=== PATIENT | female | born 1935 | race African-American/Black ===

== ENCOUNTER 2016-12-02 07:51 | Inpatient (IN) | payer MEDICARE ==
[~2016-12-02] VITALS: Ht 170.2 cm; Wt 86.7 kg
[2016-12-02] VITALS (15 sets, daily range): BP systolic 98–184; BP diastolic 34–87
[~2016-12-02 07:51] MED LIST: ALPR0.254 PO; AMLO10TA2 PO; ASPI81TA2 PO; CLOP75TA27 PO; CRESTOR20 MG PO; Clindamycin Hcl PO; Enoxaparin Sodium SQ; FURO-68 PO; Hydralazine Hcl PO; Hydrocodone/Acetaminophen PO; LABE300T PO; LACT1CAP PO; LOSA100T6 PO; LOSA50TA6 PO; METO25TA4 PO; Metoprolol Tartrate PO; OMEP20CA9 PO; TIZA4TAB PO; TRIA1CAP3 PO; WARF2TAB7 PO
[2016-12-02] MEDS: IV NORMAL SALINE 1000ML BAG 1,000 ML IV SCH ×2 (08:06→18:42)
[2016-12-02] MEDS ORDERED: DIPHENHYDRAMINE 50 MG/ML VIAL IVP ONE (08:15)
[2016-12-02] MEDS ORDERED: methylPREDNISolone SOD SUCC PF 125 MG/2 ML VIAL. IV ONE (08:15)
[2016-12-02] MEDS ORDERED: FAMOTIDINE 20 MG/2 ML VIAL IVP ONE (08:15)
[2016-12-02] MEDS ORDERED: DOCU-27 PO (08:18)
[2016-12-02] MEDS ORDERED: ASPI81TA2 PO (08:18)
[2016-12-02] MEDS ORDERED: CLON0.1T PO (08:18)
[2016-12-02 08:27] LABS: HEMATOCRIT 31.9 % (36.0-47.0); HEMOGLOBIN 10.7 g/dL (12.0-15.5); RED BLOOD COUNT 3.53 x10^6/uL (3.50-5.40); RED CELL DISTRIBUTION WIDTH 13.9 % (11.5-14.5); WHITE BLOOD COUNT 6.3 x10^3/uL (4.0-11.0)
[2016-12-02 08:41] LABS: INR 1.3 (0.8-1.1); PROTHROMBIN TIME PATIENT 15.2 SEC (11.7-14.0)
[2016-12-02 08:58] LABS: CALCIUM 9.4 mg/dL (8.5-10.1); CREATININE 1.7 mg/dL (0.6-1.0); POTASSIUM 3.9 mmol/L (3.5-5.1)
--- NOTE | 2016-12-02 08:58 | PDOC ---
MODERATE SEDATION ASSESSMENT RISKS/ALTERNATIVES Risks/Alternatives Risks and alternatives of this type of sedation and procedure discussed with: RISK/ALTERNATIVES: Patient H & P ON CHART H & P H & P on chart and reviewed for co-morbid conditions and appropriate labs. H&P ON CHART: Yes STATUS PREG STATUS ASSESSED: N/A MEDS/ALLERGIES REVIEWED Meds/Allergies Reviewed Medications and Allergies including time and route of recently administered narcotics and sedatives. MEDS/ALLERGIES REVIEWED: Yes ASA RATING ASA RATING: III AIRWAY ASSESSMENT Airway Assessment Airway patency, oral function limitations, presence of caps, crowns, dentures, partials, and ability to extend neck assessed. AIRWAY ASSESSMENT: Yes MALLAMPATI SCORE MALLAMPATI SCORE: II PRE-SEDATION ASSESSMENT PRE-SEDATION ASSESSMENT: Yes DANNA BAUTISTA MD Dec 02, 2016 08:58
[2016-12-02] MEDS ORDERED: LIDOCAINE 2% 20 ML VIAL. ONE (09:01)
[2016-12-02] MEDS ORDERED: IODIXANOL 320 MG/ML 100 ML VIAL. ONE ×2 (09:02→09:39)
[2016-12-02] MEDS ORDERED: methylPREDNISolone SOD SUCC PF 125 MG/2 ML VIAL. ONE (09:18)
[2016-12-02] MEDS ORDERED: FAMOTIDINE 20 MG/2 ML VIAL ONE (09:18)
[2016-12-02] MEDS ORDERED: DIPHENHYDRAMINE 50 MG/ML VIAL ONE (09:18)
[2016-12-02] MEDS ORDERED: MIDAZOLAM HCL 2 MG/2 ML VIAL. ONE ×2 (09:29→10:53)
[2016-12-02] MEDS ORDERED: FENTANYL PF 100 MCG/2 ML VIAL. ONE ×2 (09:29→10:54)
[2016-12-02] MEDS ORDERED: IODIXANOL 320 MG/ML 100 ML VIAL. IART ONE (09:45)
[2016-12-02] MEDS ORDERED: MIDAZOLAM HCL 2 MG/2 ML VIAL. IV ONE ×2 (09:45→11:30)
[2016-12-02] MEDS ORDERED: FENTANYL PF 100 MCG/2 ML VIAL. IV ONE ×2 (09:45→12:00)
[2016-12-02] MEDS ORDERED: LIDOCAINE 2% 20 ML VIAL. IJ ONE (09:45)
[2016-12-02] MEDS ORDERED: HEPARIN for IV BOLUS 10,000 UNIT/10 ML VIAL. ONE (09:52)
[2016-12-02] MEDS ORDERED: CLOPIDOGREL BISULFATE 75 MG TABLET ONE (11:14)
[2016-12-02] MEDS ORDERED: CLOPIDOGREL BISULFATE 75 MG TABLET PO ONE (11:15)
[2016-12-02] MEDS ORDERED: HEPARIN for IV BOLUS 10,000 UNIT/10 ML VIAL. IV ONE (11:15)
[2016-12-02] MEDS: IV 1/2 NORMAL SALINE 1,000 ML IV SCH ×2 (11:20→21:20)
[2016-12-02] MEDS ORDERED: NITROGLYCERIN SUBLINGUAL 0.4 MG BOTTLE OF 25. SL PRN (11:30)
[2016-12-02] MEDS ORDERED: ACETAMINOPHEN 325 MG TABLET. PO PRN ×2 (11:30→23:15)
--- NOTE | 2016-12-02 11:51 | CARD ---
APPROVED REPORT Patient StatusOUT-PATIENT Depilatory Painter: RT Tiburcio (R) Procedure(s) performed: 1. Bilateral selective renal angiography 2. Successful TREE FRUIT AND NUT CROPS FARMER/stent placement to bilateral renal arteries INDICATION FOR PROCEDURE The indication(s) include : Resistant hypertension, renal insufficiency and renal artery stenosis. PROCEDURE NARRATIVE After explaining the risks, benefits and alternative options, informed consent the information. Kirit vallejo was brought to the cardiac Xerox Machine Assembler and the right groin was prepped and draped the usual fashion. 20 mL of 2% lidocaine was infiltrated into the skin and subcutaneous tissues for local anesthesia. Ar terial access was obtained in the right common femoral artery and a 6 German sheath was inserted. A 6 German JR4 catheter was used to perform selective angiography of the left and right renal arteries. The following findings were noted. FINDINGS 1. The right renal artery showed 60% stenosis involving the ostium. There was a pullback gradient of approximately 70 mmHg across this lesion. 2. The left renal artery showed a patent stent in the proximal segment. Just distal to the stent, 60 % stenosis with haziness was noted. INTERVENTION The left renal artery was engaged with a 6 German JR4 guide catheter and the stenosis at the distal e dge of the stent was crossed with a 0.014 inch MBW Enterprise Pro water guidewire. This was successfully treat ed with a 5 x 15 mm Herculink Elite stent. Follow-up angiography showed resolution of the stenosis to 0%. Following this, the right renal artery was engaged with a 6 German RCD guide catheter after init ial attempts to obtain good guide support with JR4 and IM guides were unsuccessful. Due to the acute angulated takeoff of the vessel and calcification at the ostium, it was difficult to deliver any sten ts across this lesion. Hence a 6 German guide liner was advanced across the lesion after this was escrow clerk ssed with the Pro water guidewire. A 5 x 18 mm Herculink Elite stent was successfully deployed across this lesion. Follow-up angiography showed resolution of the stenosis to 0%. Patient tolerated the pr ocedure well. Hemostasis in the right groin was achieved using Angio-Seal. There were no immediate co mplications. Conclusion Successful TREE FRUIT AND NUT CROPS FARMER/stent placement of bilateral renal arteries.
[2016-12-02] MEDS ORDERED: OXYCODONE/APAP 5/325 TABLET. PO PRN (18:00)
[2016-12-02] MEDS ORDERED: ONDANSETRON PF 4 MG/2 ML VIAL. ONE (20:28)
[2016-12-02 21:38] LABS: BASO % 0 % (0-3); EOS % 0 % (0-3); HEMATOCRIT 26.3 % (36.0-47.0); HEMOGLOBIN 8.7 g/dL (12.0-15.5); LYMPH # 0.6 x10^3/uL (1.0-4.8); LYMPH % 7 % (24-48); MEAN CORPUSCULAR HEMOGLOBIN 30 pg (25-35); MEAN CORPUSCULAR HGB CONC 33 g/dL (31-37); MEAN CORPUSCULAR VOLUME 91 fL (79-100); MONO % 1 % (0-9); NEUT % 92 % (31-73); PLATELET COUNT 208 x10^3/uL (140-400); RED BLOOD COUNT 2.89 x10^6/uL (3.50-5.40); RED CELL DISTRIBUTION WIDTH 14.2 % (11.5-14.5); WHITE BLOOD COUNT 7.9 x10^3/uL (4.0-11.0)
[2016-12-02 22:44] LABS: PLT ESTIMATE ADEQUATE (ADEQUATE)
--- NOTE | 2016-12-02 23:03 | RAD ---
PQRS STATEMENT One or more of the following individualized dose reduction techniques were utilized for this study: 1.Automated exposure control. 2.Adjustment of the mA and/orkVaccording to patient size. 3.Use of iterative reconstruction technique. Indication:LOWER ABD PAIN
NO CONTRAST PER ORDER Reason: non contrast CT abd/pelvis r/o retroperitoneal hematoma / Spl. Instructions: / History: Technique: multiple contiguous axial images were obtained through the abdomen and pelvis. Coronal and sagittal reformations were created. Findings: There is a retroperitoneal hematoma in the right lower quadrant and right hemipelvis. This measures approximately 9 x 6 x 8 centimeters in size. This displaces the urinary bladder toward the left but does not cause ureteral obstruction or hydronephrosis. The heart is upper limits of normal size. There is mild atelectasis in the bilateral lung bases. Evaluation of the abdominal viscera is limited in the absence of portal venous phase contrast. The liver and spleen are normal in size. There is residual contrast in the gallbladder from the previous contrast enhanced procedure. The unopacified pancreas and adrenal glands are unremarkable. The abdominal aorta is normal in caliber and demonstrates an aorto bi-iliac stent. Renal artery stents are also in place. The renal arteries demonstrate residual contrast within the cortex and renal collecting system. Bilateral renal cysts are noted. The bowel loops are normal in caliber. The appendix is not identified. Degenerative changes are noted in the lumbar spine. Impression: - Moderate sized right retroperitoneal hematoma measuring 9 x 6 x 8 centimeters in size. - There is residual contrast within the renal parenchyma and renal collecting system. Recommend clinical vigilance for contrast induced nephropathy unless the previous contrast enhanced examination was performed shortly prior to imaging in which case this would be an expected finding. Critical findings were discussed with Zuhair, the patient's nurse at 10:57 p.m. on 12/02/2016. Electronically signed by: Kvng Hampton (Dec 02, 2016 23:02:30)
[2016-12-02] MEDS ORDERED: DIPHENHYDRAMINE HCL 25 MG CAPSULE PO PRN (23:15)
[2016-12-03] VITALS (16 sets, daily range): BP systolic 127–188; BP diastolic 54–95
[2016-12-03] MEDS: IV 1/2 NORMAL SALINE 1,000 ML IV SCH ×2 (07:20→17:20)
[2016-12-03] MEDS: CLOPIDOGREL BISULFATE 75 MG TABLET PO SCH (08:45)
[2016-12-03] MEDS: AMLODIPINE BESYLATE 10 MG TABLET PO SCH (08:45)
[2016-12-03] MEDS: LOSARTAN POTASSIUM 50 MG TABLET. PO SCH (08:45)
[2016-12-03 09:32] LABS: HEMATOCRIT 34.3 % (36.0-47.0); HEMOGLOBIN 11.5 g/dL (12.0-15.5); RED BLOOD COUNT 3.85 x10^6/uL (3.50-5.40); RED CELL DISTRIBUTION WIDTH 14.3 % (11.5-14.5); WHITE BLOOD COUNT 14.3 x10^3/uL (4.0-11.0)
[2016-12-03 09:41] LABS: CALCIUM 9.1 mg/dL (8.5-10.1); POTASSIUM 4.5 mmol/L (3.5-5.1)
--- NOTE | 2016-12-03 11:36 | PDOC ---
CARDIO Progress Notes Date and Time Date of Service 12/03/2016 Time of Evaluation 1110 Subjective Subjective: No Chest Pain, No shortness of breath, No Palpitations, No Dizziness, Other (no abdominal/groin or leg pain ) Vitals Vitals Vital Signs Date Time Temp Pulse Resp B/P Pulse Ox O2 Delivery O2 Flow Rate FiO2 12/03/16 08:45 51 188/95 12/03/16 08:07 98.2 22 98.2 12/03/16 03:00 99 Room Air Weight Weight [ ] Input and Output Intake and Output Intake and Output 12/03/16 07:00 Intake Total 1944 ml Output Total 601 ml Balance 1343 ml Intake Oral 900 ml Blood Product IV Normal Saline Flush 1044 ml Output Urine Total 400 ml Stool Total 1 ml Emesis 200 ml # Voids 2 Laboratory Labs Laboratory Tests Test 12/02/16 19:50 12/02/16 21:26 12/03/16 09:05 Glucose (Fingerstick) 176mg/dL (70-99) White Blood Count 7.9x10^3/uL (4.0-11.0) 14.3x10^3/uL (4.0-11.0) Red Blood Count 2.89x10^6/uL (3.50-5.40) 3.85x10^6/uL (3.50-5.40) Hemoglobin 8.7g/dL (12.0-15.5) 11.5g/dL (12.0-15.5) Hematocrit 26.3% (36.0-47.0) 34.3% (36.0-47.0) Mean Corpuscular Volume 91fL (79-100) 89fL (79-100) Mean Corpuscular Hemoglobin 30pg (25-35) 30pg (25-35) Mean Corpuscular Hemoglobin Concent 33g/dL (31-37) 34g/dL (31-37) Red Cell Distribution Width 14.2% (11.5-14.5) 14.3% (11.5-14.5) Platelet Count 208x10^3/uL (140-400) 178x10^3/uL (140-400) Neutrophils (%) (Auto) 92% (31-73) Lymphocytes (%) (Auto) 7% (24-48) Monocytes (%) (Auto) 1% (0-9) Eosinophils (%) (Auto) 0% (0-3) Basophils (%) (Auto) 0% (0-3) Neutrophils # (Auto) 7.2x10^3uL (1.8-7.7) Lymphocytes # (Auto) 0.6x10^3/uL (1.0-4.8) Monocytes # (Auto) 0.1x10^3/uL (0.0-1.1) Eosinophils # (Auto) 0.0x10^3/uL (0.0-0.7) Basophils # (Auto) 0.0x10^3/uL (0.0-0.2) Segmented Neutrophils % 95% (35-66) Band Neutrophils % 1% (0-9) Lymphocytes % 4% (24-48) Platelet Estimate Adequate (ADEQUATE) Sodium Level 139mmol/L (136-145) Potassium Level 4.5mmol/L (3.5-5.1) Chloride Level 107mmol/L (98-107) Carbon Dioxide Level 21mmol/L (21-32) Anion Gap 11 (6-14) Blood Urea Nitrogen 24mg/dL (7-20) Creatinine 2.0mg/dL (0.6-1.0) Estimated GFR (Cockcroft-Gault) 29.0 Glucose Level 117mg/dL (70-99) Calcium Level 9.1mg/dL (8.5-10.1) Radiology Rad Impression CT scan abdomen/pelvis: Impression: - Moderate sized right retroperitoneal hematoma measuring 9 x 6 x 8 centimeters in size. - There is residual contrast within the renal parenchyma and renal collecting system. Recommend clinical vigilance for contrast induced nephropathy unless the previous contrast enhanced examination was performed shortly prior to imaging in which case this would be an expected finding. Physical Exam HEENT: Neck Supple W Full Motion Chest: Symmetric LUNGS: Clear to Auscultation Heart: S1S2, RRR, no murmurs, other (tele: SR/SB) Extremities: 2+ Dorsalis Pedis, 2+ Posterior Tibial, No Edema, Other (right rug dry room attendant site c/d/i; soft; no ecchymosis, erythema or edema; ) Neurology: alert, oriented, follow commands Assessment Assessment 1. renal artery stenosis s/p bilateral RA stents; 12/02/2016 bradycardia (history of SSS - asymptomatic), syncope ; reported VT but no evidence on tele Hgb dropped to 8.7 from 10.7; was transfused 2 u PRBC and Hgb back up to 11.[address] scan of abdomen/pelvis done yesterday evening and demonstrates retroperitoneal bleed 9 X 6 X 8 in size denies abdominal/groin/leg pain today increase activity today; recheck H and H tomorrow - ? home tomorrow 2. ROEL post cath and retroperitoneal bleed increase p.o. intake 3. accelerated HTN SBP about 168 after losartan and amlodipine holding clonidine and labetalol due to bradycardia with rates in the 50s prn hydralazine; but accept SBP in the 150s to 160s TYRELL ZAMUDIO APRN Dec 03, 2016 11:35
[2016-12-03] MEDS ORDERED: hydrALAZINE 20 MG/ML VIAL. IVP PRN (16:30)
[2016-12-03] MEDS: LABETALOL HCL 200 MG TABLET PO SCH ×2 (16:52→21:39)
[2016-12-03] MEDS: IV NORMAL SALINE 1000ML BAG 1,000 ML IV SCH (17:26)
[2016-12-04 03:36] VITALS: BP 156/59
[2016-12-04 04:12] LABS: HEMATOCRIT 29.5 % (36.0-47.0); HEMOGLOBIN 9.8 g/dL (12.0-15.5)
[2016-12-04 04:18] LABS: CALCIUM 8.7 mg/dL (8.5-10.1); CREATININE 2.3 mg/dL (0.6-1.0); GFR 24.7; POTASSIUM 4.1 mmol/L (3.5-5.1)
[2016-12-04 07:58] VITALS: BP 173/87
[2016-12-04] MEDS: AMLODIPINE BESYLATE 10 MG TABLET PO SCH (09:25)
[2016-12-04] MEDS: LABETALOL HCL 200 MG TABLET PO SCH ×2 (09:26→21:51)
[2016-12-04] MEDS: LOSARTAN POTASSIUM 50 MG TABLET. PO SCH (09:27)
[2016-12-04] MEDS: CLOPIDOGREL BISULFATE 75 MG TABLET PO SCH (09:27)
[2016-12-04 11:00] VITALS: BP 117/51
[2016-12-04] MEDS ORDERED: IV NORMAL SALINE 1000ML BAG 1,000 ML IV ONE (11:15)
[2016-12-04] MEDS: IV NORMAL SALINE 1000ML BAG 1,000 ML IV SCH ×2 (11:15→21:52)
--- NOTE | 2016-12-04 11:18 | PDOC ---
EMILI PAYNE JOB COUNSELOR 12/04/16 1118: CARDIO Progress Notes Date and Time Date of Service 12/04/2016 Time of Evaluation 1100 Subjective Subjective: No Chest Pain, No shortness of breath, No Palpitations, No Dizziness Vitals Vitals Vital Signs Date Time Temp Pulse Resp B/P Pulse Ox O2 Delivery O2 Flow Rate FiO2 12/04/16 09:27 52 173/87 12/04/16 07:58 99.3 13 92 Room Air 99.3 Weight Weight [ ] Input and Output Intake and Output Intake and Output 12/04/16 07:00 Intake Total 710 ml Balance 710 ml Intake Oral 350 ml Blood Product IV Normal Saline Flush 360 ml # Voids 7 Laboratory Labs Laboratory Tests Test 12/04/16 03:28 Hemoglobin 9.8g/dL (12.0-15.5) Hematocrit 29.5% (36.0-47.0) Sodium Level 136mmol/L (136-145) Potassium Level 4.1mmol/L (3.5-5.1) Chloride Level 108mmol/L (98-107) Carbon Dioxide Level 23mmol/L (21-32) Anion Gap 5 (6-14) Blood Urea Nitrogen 30mg/dL (7-20) Creatinine 2.3mg/dL (0.6-1.0) Estimated GFR (Cockcroft-Gault) 24.7 Glucose Level 86mg/dL (70-99) Calcium Level 8.7mg/dL (8.5-10.1) Physical Exam HEENT: Neck Supple W Full Motion Chest: Symmetric LUNGS: Clear to Auscultation Heart: S1S2, RRR (SB), murmurs (2/6 systolic murmur to LLS border), other Abdomen: Other (diffuse abdominal tenderness) Extremities: No Edema, No Calf Tenderness Neurology: alert, oriented, follow commands Other Exams Neurovascular status to bilateral LE intact. Right groin arteriotomy site without hematoma with small ecchymoses. Assessment Assessment 1. Renal artery stenosis 2. S/P s/p bilateral RA stents 12/02/2016. complicated by retroperitoneal bleed 3. ROEL on CKD3 4. Accelerated HTN: labile 5. Asymptomatic bradycardia Recommendations 1. Cr up to 2.3 despite po hydration adequacy as verbalized by pt. Start on IVF 2. Hgb from 11.5 to 9.8 overnight post 2U PRBC. Repeat CBC this afternoon 3. If Hgb continue to decrease then will consider repeating imaging and consider consulting IR. 3. Hold losartan for now. Will start on hydralazine and imdur. 4. Decrease labetolol for HR in the 30-40s. 5. Continue with plavix 6. Miralax today and PRN. 7. Possible DC tomorrow. DANNA BAUTISTA MD 12/05/16 0901: CARDIO Progress Notes Assessment Assessment Patient seen and examined 12/04/16. Agree with COUNCIL ON AGING DIRECTOR's assessment and plan. Agree with intravenous fluids for acute on chronic renal insufficiency. Monitor CBC closely and if hemoglobin continues to drop, we will consider CT scan of abdomen. EMILI PAYNE APRN Dec 04, 2016 11:18 DANNA BAUTISTA MD Dec 05, 2016 09:01
[2016-12-04] MEDS ORDERED: POLYETHYLENE GLYCOL 3350 17 GM PACKET. PO PRN (11:30)
[2016-12-04] MEDS: HYDRALAZINE 25 MG TABLET PO SCH ×2 (14:00→21:00)
[2016-12-04 15:00] VITALS: BP 149/50
[2016-12-04 15:02] LABS: BASO % 1 % (0-3); EOS % 1 % (0-3); HEMOGLOBIN 10.3 g/dL (12.0-15.5); LYMPH # 0.8 x10^3/uL (1.0-4.8); LYMPH % 8 % (24-48); MEAN CORPUSCULAR HEMOGLOBIN 31 pg (25-35); MEAN CORPUSCULAR HGB CONC 33 g/dL (31-37); MEAN CORPUSCULAR VOLUME 92 fL (79-100); MONO % 7 % (0-9); NEUT % 84 % (31-73); PLATELET COUNT 135 x10^3/uL (140-400); RED BLOOD COUNT 3.36 x10^6/uL (3.50-5.40); RED CELL DISTRIBUTION WIDTH 14.8 % (11.5-14.5); WHITE BLOOD COUNT 9.6 x10^3/uL (4.0-11.0)
[2016-12-04 19:00] VITALS: BP 185/74
[2016-12-04] MEDS: ACETAMINOPHEN 325 MG TABLET. PO PRN (21:54)
[2016-12-04 23:00] VITALS: BP 180/61
[2016-12-05] MEDS: ACETAMINOPHEN 325 MG TABLET. PO PRN (02:26)
[2016-12-05 02:38] VITALS: BP 192/94
[2016-12-05 03:00] VITALS: BP 189/89
[2016-12-05] MEDS ORDERED: CLONIDINE HCL 0.2 MG TABLET PO PRN (04:15)
[2016-12-05] MEDS ORDERED: CLONIDINE HCL 0.1 MG TABLET PO ONE (05:00)
[2016-12-05 05:59] LABS: HEMATOCRIT 31.1 % (36.0-47.0); HEMOGLOBIN 10.3 g/dL (12.0-15.5); RED BLOOD COUNT 3.41 x10^6/uL (3.50-5.40); RED CELL DISTRIBUTION WIDTH 14.6 % (11.5-14.5); WHITE BLOOD COUNT 8.5 x10^3/uL (4.0-11.0)
[2016-12-05 06:15] LABS: CALCIUM 9.5 mg/dL (8.5-10.1); CREATININE 1.8 mg/dL (0.6-1.0); GFR 32.8; POTASSIUM 4.2 mmol/L (3.5-5.1)
[2016-12-05 07:36] VITALS: BP 162/76
[2016-12-05] MEDS ORDERED: ISOSORBIDE MONONITRATE ER 30 MG TAB.ER.24H PO SCH (09:00)
[2016-12-05] MEDS: LABETALOL HCL 200 MG TABLET PO SCH (09:00)
[2016-12-05] MEDS: AMLODIPINE BESYLATE 10 MG TABLET PO SCH (09:23)
[2016-12-05] MEDS: HYDRALAZINE 25 MG TABLET PO SCH ×2 (09:24→13:54)
[2016-12-05] MEDS: CLOPIDOGREL BISULFATE 75 MG TABLET PO SCH (09:24)
[2016-12-05] MEDS ORDERED: LOSARTAN POTASSIUM 50 MG TABLET. PO SCH (09:30)
--- NOTE | 2016-12-05 09:34 | PDOC3 ---
Discharge Summary Visit Information Date of Admission: Dec 02, 2016 Date of Discharge: Dec 05, 2016 Admitting Diagnosis: Resistant HTN, CKD, renal stenosis Final Diagnosis Problems Medical Problems: (1) Renal artery stenosis Status: Acute (2) Retroperitoneal bleed Status: Acute Brief Hospital Course Allergies Allergies Coded Allergies Type Severity Reaction Last Updated Verified adhesive Allergy Intermediate Rash 05/09/15 Yes iodine Allergy Intermediate 05/09/15 Yes codeine Adverse Reaction Intermediate "feel loopy" 05/11/15 Yes oxycodone Adverse Reaction Intermediate "feel loopy" 05/11/15 Yes Vital Signs Vital Signs Date Time Temp Pulse Resp B/P Pulse Ox O2 Delivery O2 Flow Rate FiO2 12/05/16 09:25 57 162/76 12/05/16 07:36 21 12/05/16 07:35 97.5 99 Room Air 97.5 Lab Results Laboratory Tests Test 12/04/16 03:28 12/04/16 14:45 12/05/16 04:44 Hemoglobin 9.8g/dL (12.0-15.5) 10.3g/dL (12.0-15.5) 10.3g/dL (12.0-15.5) Hematocrit 29.5% (36.0-47.0) 31.0% (36.0-47.0) 31.1% (36.0-47.0) Sodium Level 136mmol/L (136-145) 145mmol/L (136-145) Potassium Level 4.1mmol/L (3.5-5.1) 4.2mmol/L (3.5-5.1) Chloride Level 108mmol/L (98-107) 115mmol/L (98-107) Carbon Dioxide Level 23mmol/L (21-32) 22mmol/L (21-32) Anion Gap 5 (6-14) 8 (6-14) Blood Urea Nitrogen 30mg/dL (7-20) 25mg/dL (7-20) Creatinine 2.3mg/dL (0.6-1.0) 1.8mg/dL (0.6-1.0) Estimated GFR (Cockcroft-Gault) 24.7 32.8 Glucose Level 86mg/dL (70-99) 100mg/dL (70-99) Calcium Level 8.7mg/dL (8.5-10.1) 9.5mg/dL (8.5-10.1) White Blood Count 9.6x10^3/uL (4.0-11.0) 8.5x10^3/uL (4.0-11.0) Red Blood Count 3.36x10^6/uL (3.50-5.40) 3.41x10^6/uL (3.50-5.40) Mean Corpuscular Volume 92fL (79-100) 91fL (79-100) Mean Corpuscular Hemoglobin 31pg (25-35) 30pg (25-35) Mean Corpuscular Hemoglobin Concent 33g/dL (31-37) 33g/dL (31-37) Red Cell Distribution Width 14.8% (11.5-14.5) 14.6% (11.5-14.5) Platelet Count 135x10^3/uL (140-400) 132x10^3/uL (140-400) Neutrophils (%) (Auto) 84% (31-73) Lymphocytes (%) (Auto) 8% (24-48) Monocytes (%) (Auto) 7% (0-9) Eosinophils (%) (Auto) 1% (0-3) Basophils (%) (Auto) 1% (0-3) Neutrophils # (Auto) 8.0x10^3uL (1.8-7.7) Lymphocytes # (Auto) 0.8x10^3/uL (1.0-4.8) Monocytes # (Auto) 0.7x10^3/uL (0.0-1.1) Eosinophils # (Auto) 0.1x10^3/uL (0.0-0.7) Basophils # (Auto) 0.0x10^3/uL (0.0-0.2) Laboratory Tests Test 12/04/16 14:45 12/05/16 04:44 White Blood Count 9.6x10^3/uL (4.0-11.0) 8.5x10^3/uL (4.0-11.0) Red Blood Count 3.36x10^6/uL (3.50-5.40) 3.41x10^6/uL (3.50-5.40) Hemoglobin 10.3g/dL (12.0-15.5) 10.3g/dL (12.0-15.5) Hematocrit 31.0% (36.0-47.0) 31.1% (36.0-47.0) Mean Corpuscular Volume 92fL (79-100) 91fL (79-100) Mean Corpuscular Hemoglobin 31pg (25-35) 30pg (25-35) Mean Corpuscular Hemoglobin Concent 33g/dL (31-37) 33g/dL (31-37) Red Cell Distribution Width 14.8% (11.5-14.5) 14.6% (11.5-14.5) Platelet Count 135x10^3/uL (140-400) 132x10^3/uL (140-400) Neutrophils (%) (Auto) 84% (31-73) Lymphocytes (%) (Auto) 8% (24-48) Monocytes (%) (Auto) 7% (0-9) Eosinophils (%) (Auto) 1% (0-3) Basophils (%) (Auto) 1% (0-3) Neutrophils # (Auto) 8.0x10^3uL (1.8-7.7) Lymphocytes # (Auto) 0.8x10^3/uL (1.0-4.8) Monocytes # (Auto) 0.7x10^3/uL (0.0-1.1) Eosinophils # (Auto) 0.1x10^3/uL (0.0-0.7) Basophils # (Auto) 0.0x10^3/uL (0.0-0.2) Sodium Level 145mmol/L (136-145) Potassium Level 4.2mmol/L (3.5-5.1) Chloride Level 115mmol/L (98-107) Carbon Dioxide Level 22mmol/L (21-32) Anion Gap 8 (6-14) Blood Urea Nitrogen 25mg/dL (7-20) Creatinine 1.8mg/dL (0.6-1.0) Estimated GFR (Cockcroft-Gault) 32.8 Glucose Level 100mg/dL (70-99) Calcium Level 9.5mg/dL (8.5-10.1) Brief Hospital Course This is a pleasant 81 yo female significant for CKD and resistant HTN. She was then admitted for planned renal arteriogram with JINRIKISHA DRIVER/stent placement to bilateral renal arteries via right femoral approach. She tolerated procedure well but was followed with moderate size retroperitoneal bleed which prompted 2 units of blood transfusion. Hemostasis was then significantly achieved with resulting stable Hgb at 10.3. Noted with small ecchymoses to right groin site but otherwise no hematoma, swelling and neurovascular status to bilateral LE intact. AOX3, ambulatory without difficulty, respiratory status stable. In the course of her stay she was provided with further IVF to optimize her renal function and also she was noted with lability on her HTN with persistent asymptomatic bradycardia with underlying use of labetolol. This was then discontinued and discussed introduction of hydralazine and imdur which she agreed with change. Her HR improved with mean in the 50s and her BP is improving with SBP. She was then instructed to obtain HR/BP diary in the next 2 weeks and she will follow up in our office in 2 weeks. She will be discharged with post cath instructions and emphasized discontinuation of coumadin for now which she continues to utilize from her remote DVT. Will review OAC on her next visit. Discharge Information Condition at Discharge: Stable Follow Up: Weeks (2) Disposition/Orders: D/C to Home Scheduled Alprazolam (Alprazolam) 1 TAB PO BID (Reported) Amlodipine Besylate (Amlodipine Besylate) 1 TAB PO DAILY (Reported) Aspirin (Aspirin) 81 MG PO DAILY (Reported) Clopidogrel Bisulfate (Clopidogrel) 1 TAB PO DAILY (Reported) Docusate Sodium (Colace) 1 CAP PO BID (Reported) Furosemide (Lasix) 40 MG PO DAILY (Reported) Hydralazine Hcl (Hydralazine Hcl) 1 TAB PO TID (Reported) Isosorbide Mononitrate (Isosorbide Mononitrate Er) 1 TAB PO DAILY (Reported) Losartan Potassium (Losartan Potassium) 100 MG PO DAILY (Reported) Rosuvastatin Calcium (Crestor) 1 TAB PO HS (Reported) Tizanidine Hcl (Tizanidine Hcl) 2 MG PO HS (Reported) Scheduled PRN Clonidine Hcl (Clonidine Hcl) 0.1 MG PO PRN PRN PRN HYPERTENSION, SEE COMMENTS ( Reported) Discontinued Medications Labetalol Hcl (Labetalol Hcl) 400 MG PO BID (Reported) Omeprazole (Omeprazole) 1 CAP PO BID (Reported) Warfarin Sodium (Warfarin Sodium) 2.5 MG PO DAILY (Reported) Patient Instructions Patient Instructions GENERAL INSTRUCTIONS: 1. Your dressing should be removed prior to leaving the hospital. 2. It is OK to shower the day after your procedure. 3. If you received stents, be sure to carry your stent information card with you in your wallet/purse at all times. 4. Call the office immediately at [phone] if you notice any fever or if there is redness, worsening tenderness/pain, increased bruising, or drainage from the puncture site. 5. Should you have bleeding from the site, lie down immediately & put pressure on the site. The pressure should be hard enough to stop the bleeding. Have the nearest person call 911. DO NOT try to drive to the ER with active bleeding. 6. If you notice a change in color, coolness to touch, or loss of feeling in the affected extremity, come to the emergency room. Please have someone drive you or call 911 if no one is available. DO NOT drive yourself. 7. If you normally take glucophage (metformin), please do not take this medicine for 48 hours following your procedure. 8. DO NOT STOP TAKING YOUR PLAVIX OR ASPIRIN UNLESS IT IS CLEARED BY A GAS COMPRESSOR OPERATOR OF YOUR IT ANALYST AT OUR OFFICE. 9. QUIT SMOKING: the [place] [employer], [place] [employer], & [place] [employer] have cessation resources available on their websites 10. Please have someone available to drive you home from the hospital as you may be limited by sedation medications given during the procedure. Femoral (Groin) access: 1. Do no lifting, pushing, pulling, bending, stooping, or recurrent stair climbing for 3 days following your procedure. 2. Once past the first 3 days, do not do any HEAVY exertion or lifting for one week following the procedure. No gym workouts, running, lifting greater than a gallon of milk, etc 3. Do not submerge in bath or pool for one week. OK to drive 3 days following your procedure, but if going long distance, do not go alone & take hourly breaks to get out of car and walk around. Call the office at [phone] for any questions or concerns. EMILI PAYNE APRN Dec 05, 2016 09:34
[2016-12-05 10:25] VITALS: BP 186/91
[2016-12-05] MEDS ORDERED: LOSARTAN POTASSIUM 50 MG TABLET. PO ONE (13:00)
[2016-12-05] MEDS ORDERED: ISOS30TA4 PO (13:27)
[2016-12-05] MEDS ORDERED: CLOP75TA PO (13:28)
[2016-12-05] MEDS ORDERED: HYDR100T24 PO (13:29)
[2016-12-05 13:54] VITALS: BP 162/76
[2016-12-05] MEDS: IV NORMAL SALINE 1000ML BAG 1,000 ML IV SCH (13:55)
== END 2016-12-05 14:30 | disposition home or self-care (01) | DRG 673 ==
LOC: CCL 07:51 → 5 SOUTH 10:09 → INTOOBSV 10:09 → 2 NORTH 22:37 → OBSVTOIN 12-04 11:21
PROVIDERS: ADMIT Internal Medicine Cardiovascular Disease; ATTEND Internal Medicine Cardiovascular Disease
PROC: 30233N1 Transfusion of Nonautologous Red Blood Cells into Peripheral Vein, Percutaneous Approach (ICD-10-PCS; principal; 2016-12-04)
PROC: 047A3DZ Dilation of Left Renal Artery with Intraluminal Device, Percutaneous Approach (ICD-10-PCS; 2016-12-04)
PROC: 04793DZ Dilation of Right Renal Artery with Intraluminal Device, Percutaneous Approach (ICD-10-PCS; 2016-12-04)
PROC: B4181ZZ Fluoroscopy of Bilateral Renal Arteries using Low Osmolar Contrast (ICD-10-PCS; 2016-12-04)
DX: I70.1 Atherosclerosis of renal artery (principal); K66.1 Hemoperitoneum; N17.9 Acute kidney failure, unspecified; N18.3 Chronic kidney disease, stage 3 (moderate); I12.9 Hypertensive chronic kidney disease with stage 1 through stage 4 chronic kidney disease, or unspecified chronic kidney disease; I49.5 Sick sinus syndrome; E78.5 Hyperlipidemia, unspecified; I25.10 Atherosclerotic heart disease of native coronary artery without angina pectoris; Z95.1 Presence of aortocoronary bypass graft; Z98.890 Other specified postprocedural states; Z91.041 Radiographic dye allergy status; Z88.6 Allergy status to analgesic agent; Z88.8 Allergy status to other drugs, medicaments and biological substances; Z91.048 Other nonmedicinal substance allergy status; Z86.73 Personal history of transient ischemic attack (TIA), and cerebral infarction without residual deficits; Z90.49 Acquired absence of other specified parts of digestive tract; Z90.710 Acquired absence of both cervix and uterus
CPT/HCPCS: 36252; 36415; 37236; 37237; 74176; 80048; 82947; 85007; 85014; 85018; 85027; 85610; 85730; 86850; 86900; 86901; 86922; C1769; C1771; C1876; C1887; C1892; G0269; G0378; G0379; J0360; J1200; J2250; J2405; J2930; J3010; J7030; P9016; S0028